=== PATIENT | female | born 1970 | race Caucasian/White ===

== ENCOUNTER 2016-05-16 04:30 | Emergency (ER) | payer OTHER ==
[2016-05-16] MEDS ORDERED: DILAUDID 1 MG/ML AMP ONE (06:21)
[2016-05-16] MEDS ORDERED: ONDANSETRON 4 MG VIAL ONE (06:21)
== END 2016-05-16 08:38 | disposition home or self-care (01) ==
LOC: ER 04:30
DX: N39.0 Urinary tract infection, site not specified (principal); R11.2 Nausea with vomiting, unspecified
CPT/HCPCS: 36415; 74176; 80053; 81001; 82274; 83690; 84703; 85025; 87077; 87088; 87186; 87493; 93005; 96374; 96375; 99284; J1170; J2405

== ENCOUNTER 2016-05-26 15:09 | Emergency (ER) | payer OTHER ==
[2016-05-26] MEDS ORDERED: DILAUDID 1 MG/ML AMP ONE ×3 (18:28→21:09)
[2016-05-26] MEDS ORDERED: ONDANSETRON 4 MG VIAL ONE (18:29)
[2016-05-26] MEDS ORDERED: KETOROLAC 30 MG/ML VIAL ONE (18:29)
== END 2016-05-26 22:07 | disposition home or self-care (01) ==
LOC: ER 15:09
DX: N39.0 Urinary tract infection, site not specified (principal)
CPT/HCPCS: 36415; 74000; 80048; 81001; 85025; 87088; 96374; 96375; 96376; 99284; J1170; J1885; J2405